=== PATIENT | female | born 1990 | race Caucasian/White ===

== ENCOUNTER → 2017-01-24 | Outpatient (CLI) | payer OTHER ==
--- NOTE | 2017-01-24 09:56 | REP ---
Bilateral knee series: 10 views. History: Right knee pain below the patella, left knee pain above and below the patella. Findings: Five views of the left knee demonstrate normal bones, joints and soft tissues. No evidence of joint effusion is seen. Five views of the right knee are unremarkable as well. No evidence of joint effusion or erosive change. Impression: Unremarkable bilateral knee radiographs. Signed by Juan Alcaraz MD 01/24/2017 12:58 P
== END ==
LOC: M WUC 08:38
PROVIDERS: ATTEND Nurse Practitioner Family
DX: M25.561 Pain in right knee (principal); M25.562 Pain in left knee

== ENCOUNTER → 2017-05-06 | Outpatient (CLI) | payer OTHER ==
--- NOTE | 2017-05-06 15:47 | REP ---
Duplex extremity venous ultrasound: Right lower extremity. History: Right calf pain. Findings: The deep veins are anechoic and fully compressible from the groin to the popliteal fossa in the right lower extremity. Color flow imaging is homogeneous. Spectral Doppler interrogation demonstrates intact respiratory variation in flow and normal manual augmentation of flow. There is no evidence of deep vein thrombosis. Impression: Negative right lower extremity duplex venous ultrasound. No evidence of deep vein thrombosis. Signed by Juan Alcaraz MD 05/06/2017 03:40 P
== END ==
LOC: M LAB 14:50
PROVIDERS: ATTEND Family Medicine
DX: M79.89 Other specified soft tissue disorders (principal)

== ENCOUNTER 2018-11-10 23:07 | Emergency (ER) | payer OTHER ==
[~2018-11-10] VITALS: Ht 167.6 cm; Wt 102.7 kg
[2018-11-11] MEDS ORDERED: ACETAMINOPHEN 500 MG TAB PO ONE (04:00)
[2018-11-11 04:46] VITALS: BP 169/89
--- NOTE | 2018-11-11 11:07 | REP ---
RIGHT ANKLE, FOUR VIEWS: There is no evidence of an acute fracture, dislocation or intrinsic bone disease. There is mild posterior calcaneal spurring as well as dorsal navicular spurring. Ankle mortise is anatomic. IMPRESSION: No fracture or dislocation. Electronically Signed by Medardo Duncan MD 11/11/2018 06:57 P
--- NOTE | 2018-11-11 11:21 | REP ---
RIGHT FOOT, FOUR VIEWS: There is no evidence of an acute fracture, dislocation or intrinsic bone disease. There is mild posterior calcaneal and dorsal navicular spurring. IMPRESSION: No fracture or dislocation. Electronically Signed by Medardo Duncan MD 11/11/2018 06:58 P
== END 2018-11-11 04:48 | disposition home or self-care (01) ==
LOC: M ED 23:07
DX: S93.401A Sprain of unspecified ligament of right ankle, initial encounter (principal); W10.9XXA Fall (on) (from) unspecified stairs and steps, initial encounter; Y92.009 Unspecified place in unspecified non-institutional (private) residence as the place of occurrence of the external cause; Y93.01 Activity, walking, marching and hiking; Y99.9 Unspecified external cause status

== ENCOUNTER → 2018-12-06 | Outpatient (CLI) | payer OTHER ==
--- NOTE | 2018-12-06 12:26 | REP ---
RIGHT ANKLE, FOUR VIEWS: HISTORY: Pain. There is no acute fracture or dislocation. The joint space is normal in appearance. An osteophyte is present on the posterior calcaneus. IMPRESSION: There is no acute fracture or dislocation. Electronically Signed by Kennedy Pleitez MD 12/06/2018 12:27 P
== END ==
LOC: M WUC 10:58
PROVIDERS: ATTEND Family Medicine
DX: M25.571 Pain in right ankle and joints of right foot (principal)

== ENCOUNTER → 2019-04-19 | Outpatient (CLI) | payer OTHER ==
[2019-04-19 17:32] LABS: BASO % 0.5 % (0.0-1.0); EOS # 0.1 10^3/uL (0.0-0.50); EOS % 1.5 % (0.0-3.0); HEMATOCRIT 44.3 % (36.0-47.0); HEMOGLOBIN 15.2 g/dl (12.0-15.5); LYMPH # 2.7 10^3/uL (1.5-6.5); LYMPH % 30.4 % (24.0-44.0); MEAN CORPUSCULAR HEMOGLOBIN 30.5 pg (27.0-33.0); MEAN CORPUSCULAR HGB CONC 34.3 g/dl (32.0-36.5); MEAN CORPUSCULAR VOLUME 88.8 fl (80.0-96.0); MONO # 0.7 10^3/uL (0.0-0.8); MONO % 7.4 % (0.0-5.0); NEUTROPHILS # 5.3 10^3/uL (1.8-7.7); PLATELET COUNT, AUTOMATED 273 10^3/uL (150-450); RED BLOOD COUNT 4.99 10^6/uL (4.00-5.40); WHITE BLOOD COUNT 8.9 10^3/uL (4.0-10.0)
[2019-04-19 17:38] LABS: C REACTIVE PROTEIN QUANTITATIV < 0.30 MG/DL (0.00-0.30); FREE T4 1.08 NG/DL (0.76-1.46); IMMUNOGLOBULIN G 1290 MG/DL (681-1648)
[2019-04-19 17:39] LABS: PROGESTERONE 0.25 NG/ML
[2019-04-19 17:40] LABS: TOTAL 25(OH) VITAMIN D 24.6 NG/ML (30.0-100.0)
[2019-04-20 09:58] LABS: THYROID PEROXIDASE ANTIBODY < 28.0 U/ML (<60.0)
[2019-04-25 15:18] LABS: ANTINUCLEAR ANTIBODIES DIRECT Negative (Negative); EBV AB TO NUCLEAR ANTIGEN <18.0 U/mL (0.0-17.9); EBV VIRAL CAPSID AG IgM <36.0 U/mL (0.0-35.9); ESTROGENS TOTAL 168 pg/mL (.); Lyme Disease IgG/IgM Antibodie <0.91 ISR (0.00-0.90); Lyme Disease IgM Ab Quantitati <0.80 index (0.00-0.79); T3 REVERSE 24.7 ng/dL (9.2-24.1); TESTOSTERONE FREE (DIRECT) 1.3 pg/mL (0.0-4.2); TISSUE TRANSGLUTAMINASE IgA <2 U/mL (0-3)
== END ==
LOC: M WUC 15:07
PROVIDERS: ATTEND Nurse Practitioner Pediatrics
DX: F90.0 Attention-deficit hyperactivity disorder, predominantly inattentive type (principal); E66.9 Obesity, unspecified; R19.7 Diarrhea, unspecified

== ENCOUNTER → 2019-08-24 | Outpatient (CLI) | payer OTHER ==
--- NOTE | 2019-08-24 08:13 | REP ---
Clinical: Left calf pain . Technique: Duncan scale and color Doppler evaluation using linear high frequency transducer. Findings: Ultrasound examination of the left lower extremity deep venous structures from the common femoral vein to the popliteal vein demonstrates normal compressibility flow and wave patterns in response to respiration and augmentation. There is no evidence for deep venous thrombosis. Impression: No evidence for deep venous thrombosis. Electronically Signed by Ishan Roberson MD 08/24/2019 08:04 A
== END ==
LOC: M RAD 07:38
PROVIDERS: ATTEND Physician Assistant
DX: M79.662 Pain in left lower leg (principal)

== ENCOUNTER → 2019-08-29 | Outpatient (CLI) | payer OTHER ==
--- NOTE | 2019-08-30 11:31 | REP ---
Clinical: Lower leg pain. Technique: Axial noncontrast images from the distal femoral metaphysis through the midfoot with coronal and sagittal re-formations. Findings: The osseous structures including distal femur, patella, tibia / fibula and midfoot demonstrate normal osseous structures, joint spaces, and surrounding soft tissues. No acute or healed injury is appreciated. No abscess or abnormal fluid collection. No joint effusion. Impression: Normal noncontrast CT of the left tibia / fibula region. Electronically Signed by Ishan Roberson MD 08/30/2019 10:47 A
== END ==
LOC: M RAD 07:13
PROVIDERS: ATTEND Physician Assistant
DX: S80.12XA Contusion of left lower leg, initial encounter (principal); X58.XXXA Exposure to other specified factors, initial encounter; Y92.89 Other specified places as the place of occurrence of the external cause

== ENCOUNTER 2023-01-24 08:24 | Day surgery (SDC) | payer OTHER ==
[~2023-01-24] VITALS: Ht 167.6 cm; Wt 116.7 kg
[2023-01-24] MEDS ORDERED: MIDAZOLAM INJ 2MG/2ML VIAL As Ordered ONE (08:38)
[2023-01-24] MEDS ORDERED: fentaNYL 100 MCG/2 ML INJECTION As Ordered ONE (08:39)
[2023-01-24] MEDS ORDERED: propofoL 200 MG/20 ML VIAL As Ordered ONE ×2 (08:40→09:44)
[2023-01-24] MEDS ORDERED: ONDANSETRON 4MG 2ML VIAL As Ordered ONE (08:40)
[2023-01-24] MEDS ORDERED: LIDOCAINE 2% 100MG/5ML SDV (FOR ANES.) As Ordered ONE (08:40)
[2023-01-24] MEDS ORDERED: ROCURONIUM BROMIDE 50MG/5ML VIAL As Ordered ONE (08:43)
[2023-01-24] MEDS ORDERED: BUPIVACAINE/EPIN 0.5% 30ML VIAL As Ordered ONE (09:15)
[2023-01-24] MEDS ORDERED: LR 1,000 ML IV SCH ×2 (09:15→10:50)
[2023-01-24] MEDS ORDERED: HYDROmorphone HCL 2MG/ML 1ML VIAL As Ordered ONE (09:52)
[2023-01-24] MEDS ORDERED: LABETALOL 100MG/20ML VIAL As Ordered ONE (09:59)
[2023-01-24] MEDS ORDERED: SUGAMMADEX SODIUM 500 MG/5 ML VIAL (BRIDION) As Ordered ONE (10:08)
[2023-01-24] MEDS ORDERED: HYDROMORPHONE HCL 0.5 MG/ 0.5 ML SYRINGE IV PRN (10:50)
[2023-01-24] MEDS ORDERED: fentaNYL 100 MCG/2 ML INJECTION IV PRN (10:50)
[2023-01-24] MEDS ORDERED: ONDANSETRON 4MG 2ML VIAL IV PRN ×2 (10:50→10:55)
[2023-01-24] MEDS ORDERED: HYDROcodone/APAP LIQUID 7.5-325MG 15ML UDC (LORTAB ELIXIR) PO PRN (10:50)
[2023-01-24] MEDS ORDERED: oxyCODONE 5MG TAB PO PRN (10:50)
[2023-01-24 11:20] VITALS: TEMP 97.3
[2023-01-24 11:45] VITALS: BP 141/85; O2SAT 95
== END 2023-01-24 11:55 | disposition home or self-care (01) ==
LOC: M SDC 08:24
PROVIDERS: ATTEND Otolaryngology
DX: J35.03 Chronic tonsillitis and adenoiditis (principal); Z91.040 Latex allergy status
CPT/HCPCS: 42821; 81025; 88302; J1100; J1170; J2250; J2405; J3010; S0020